=== PATIENT | male | born 1930 | race Caucasian/White ===

== ENCOUNTER 2016-04-20 12:10 | Inpatient (IN) | payer OTHER, BC ==
--- NOTE | 2016-04-20 12:37 | PDOC ---
History of Present Illness - General Chief Complaint: Shortness of Breath Stated Complaint: PCP SENT, SOB Time Seen by Provider: 04/20/16 12:27 History Source: Patient Exam Limitations: No Limitations - History of Present Illness Initial Comments: CHIEF COMPLAINT: 85 y/o afebrile male with PMH A-fib, CHF, CAD, DM, GERD, HTN, PVD, sarcoidosis, venous insufficiency sent in by Dr. Klein for admission for SOB. HISTORY OF PRESENT ILLNESS: The patient states he has had a productive cough of clear sputum for the past 1 week. He now has orthopnea and is afraid to lie flat because he chokes. He also admits to lower extremity swelling. The patient denies fever, chills, n/v/d, CP, abd pain, back pain. The patient completed a Z-pack 2 days ago for treatment of clinical pneumonia with little relief. Vital signs on arrival are within normal limits. REVIEW OF SYSTEMS: GENERAL/CONSTITUTIONAL: No fever/chills. No weakness. No weight change. HEAD, EYES, EARS, NOSE AND THROAT: No change in vision. No ear pain or discharge. No sore throat. CARDIOVASCULAR: No chest pain. +SOB RESPIRATORY: +productive cough of white sputum. +orthopnea. No wheezing, or hemoptysis. GASTROINTESTINAL: No abd pain, nausea, vomiting, diarrhea. GENITOURINARY: No dysuria, frequency, or change in urination. MUSCULOSKELETAL: +lower extremity swelling. No neck or back pain. SKIN: No rash or easy bruising. NEUROLOGIC: No headache, vertigo, loss of consciousness, or loss of sensation. PHYSICAL EXAM: GENERAL: The patient is awake, alert, and fully oriented, in no acute distress. He is BIB via wheelchair, appears well, can speak in full sentences. HEAD: Normal with no signs of trauma. ENT: Pupils equal, round and reactive to light, extraocular movements intact, sclera anicteric, conjunctiva clear. Neck supple. LUNGS: Posttussive rhonchi at the bases with a wet, congested sounding cough. Normal excursion. No respiratory distress or use of accessory muscles. CV: RRR, S1/S2, no MRG. Cap refill < 2 sec. ABDOMEN: Soft, non-distended, non. 2+pitting edema b/l LEs with brawny changes 2/[address] each calf. NEUROLOGICAL: Normal speech, normal gait. CN II-XII grossly intact. PSYCH: Normal mood, normal affect. SKIN: Warm, dry, normal turgor, no rashes or lesions noted. Past History - Past Medical History Allergies/Adverse Reactions: Allergies Allergy/AdvReac Type Severity Reaction Status Date / Time No Known Allergies Allergy Verified 04/20/16 12:13 Home Medications: Ambulatory Orders Carvedilol 6.25 mg PO BID 04/20/16 Cholecalciferol (Vitamin D3) [Vitamin D3 -] 400 unit PO DAILY 04/20/16 Digoxin [Lanoxin -] 0.125 mg PO DAILY 04/20/16 FA/Mv,Ca,Iron,Min/Lycopene/Lut [Centravites Tablet] 1 each PO DAILY 04/20/16 Furosemide [Lasix] 40 mg PO DAILY 04/20/16 Tamsulosin HCl [Flomax] 0.4 mg PO DAILY 04/20/16 Telmisartan [Micardis] 40 mg PO DAILY 04/20/16 Cardiac Disorders: Yes (PACEMAKER, A-FIB,CAD) Diabetes: Yes GI Disorders: Yes (GERD) HTN: Yes Other medical history: PVD - Surgical History Cardiac Surgery: Yes (PACEMAKER) Cholecystectomy: Yes - Psycho/Social/Smoking Cessation Hx Suicidal Ideation: No Smoking History: Never smoked *Physical Exam - Vital Signs Last Vital Signs Temp Pulse Resp BP Pulse Ox 68 19 116/71 98 04/20/16 12:14 04/20/16 12:14 04/20/16 12:14 04/20/16 12:14 Heart Score/ECG Review - ECG Intrepretation Comment:: Twelve-lead EKG was performed and reviewed by Dr. Ring. Ventricular-paced rhythm Impression: Abnormal EKG ED Treatment Course - LABORATORY CBC & Chemistry Diagram: 04/20/16 13:15 04/20/16 13:15 Medical Decision Making - Medical Decision Making A/P: 85 y/o afebrile male sent in by Dr. Klein for PNA vs CHF exacerbation. I suspect CHF exacerbation. Plan is as follows; 1. EKG 2. Labs 3. Cultures 4. UA/culture 5. Chest CT EKG -paced rhythm BNP - 5800; ordered lasix No leukocytosis or bandemia. Still awaiting CT. Admitted the patient to Dr. Mcdonnell with consults from Dr. Pritchett and Dr. Hay. *DC/Admit/Observation/Transfer Diagnosis at time of Disposition: CHF exacerbation Qualifiers: Congestive heart failure type: unspecified congestive heart failure type Qualified Code(s): I50.9 - Heart failure, unspecified - Discharge Dispostion Condition at time of disposition: Stable Admit: Yes - Referrals Referrals: Russell Mcdonnell MD [Primary Care Provider] -
[2016-04-20 13:31] LABS: BASOPHIL 0.6 % (0-2.0); EOSINOPHIL 4.4 % (0-4.5); MCH 21.8 pg (25.7-33.7); MCHC 32.5 g/dl (32.0-35.9); MEAN CELL VOLUME 67.1 fl (80-96); MEAN PLT VOLUME 9.1 fl (7.5-11.1); NEUTROPHILS 69.9 % (42.8-82.8); PLATELET COUNT 181 K/MM3 (134-434); RDW 18.7 % (11.9-15.9); WHITE BLOOD COUNT 5.4 K/mm3 (4.0-10.0)
[2016-04-20 13:36] LABS: URINE APPEARANCE CLEAR; URINE BILIRUBIN NEGATIVE (NEGATIVE); URINE BLOOD NEGATIVE (NEGATIVE); URINE COLOR YELLOW; URINE GLUCOSE (UA) NEGATIVE (NEGATIVE); URINE KETONE NEGATIVE (NEGATIVE); URINE LEUK ESTERASE NEGATIVE (NEGATIVE); URINE NITRITE NEGATIVE (NEGATIVE); URINE PROTEIN NEGATIVE (NEGATIVE); URINE UROBILINOGEN 2.0 E.U/dl E.U./dl (0.2-1.0)
--- NOTE | 2016-04-20 13:43 | PDOC ---
*Physical Exam - Vital Signs Last Vital Signs Temp Pulse Resp BP Pulse Ox 68 19 116/71 98 04/20/16 12:14 04/20/16 12:14 04/20/16 12:14 04/20/16 13:20 ED Treatment Course - LABORATORY CBC & Chemistry Diagram: 04/20/16 13:15 04/20/16 13:15 - ADDITIONAL ORDERS Additional order review: 04/20/16 13:15 RBC 4.92 MCV 67.1 L MCHC 32.5 RDW 18.7 H MPV 9.1 Neutrophils % 69.9 Lymphocytes % 16.3 Monocytes % 8.8 Eosinophils % 4.4 Basophils % 0.6 Medical Decision Making - Medical Decision Making 04/20/16 13:42 Patient seen and evaluated with the nurse practitioner. I agree with the overall evaluation, assessment, and management with the following summary of visit: 85-year-old male with worsening dyspnea sent from Dr. Mcdonnell's office for workup and likely admission, possible pneumonia versus CHF. Agree with management as outlined. *DC/Admit/Observation/Transfer Diagnosis at time of Disposition: CHF exacerbation - Discharge Dispostion Condition at time of disposition: Stable
[2016-04-20 13:59] LABS: INR 1.23 (0.82-1.09); PROTHROMBIN TIME (PATIENT) 13.6 SEC (9.98-11.88)
[2016-04-20 14:01] LABS: ACTIVATED PTT 37.1 SECONDS (26.9-34.4)
[2016-04-20 14:26] LABS: HYPOCHROMIA 3+
[2016-04-20 14:27] LABS: FRAGMENTED CELL 1+; TARGET CELLS 4+
[2016-04-20 15:48] LABS: ALBUMIN 3.8 g/dl (3.4-5.0); ANION GAP 10 (8-16); BILIRUBIN,TOTAL 1.2 mg/dL (0.2-1.0); CALCIUM 8.7 mg/dL (8.5-10.1); CO2 27 mmol/L (21-32); GLUCOSE,RANDOM 90 mg/dL (74-106); SGOT/AST 36 U/L (15-37); SGPT/ALT 30 U/L (12-78); TOT PROT 7.4 g/dl (6.4-8.2)
[2016-04-20 15:51] LABS: ALK PHOS 227 U/L (45-117); TROPONIN I < 0.02 ng/ml (0.00-0.05)
[2016-04-20] MEDS ORDERED: FUROSEMIDE 40 MG/4 ML INJECTABLE VIAL IVPUSH ONE (16:00)
[2016-04-20] MEDS ORDERED: FUROSEMIDE 40 MG/4 ML INJECTABLE VIAL ONE (16:21)
[2016-04-20 17:59] VITALS: BMI 25.8
--- NOTE | 2016-04-20 18:51 | HP ---
Admitting History and Physical - Admission Chief Complaint: sob/coug/fever History of Present Illness: 85 y/o male with h/o A-fib, CHF, CAD, DM, GERD, HTN, PVD, sarcoidosis, venous insufficiency sent in from my office for admission for SOB. The patient states he has had a productive cough of clear sputum for the past 1 week. He now has orthopnea and is afraid to lie flat because he chokes. He also admits to lower extremity swelling. The patient denies fever, chills, n/v/ d, CP, abd pain, back pain. The patient completed a Z-pack 2 days ago for treatment of clinical pneumonia with little relief. 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 No: Ascites Hepatobiliary: No: Cirrhosis Renal/: No: Renal Failure Heme/Onc: Yes: Anemia Infectious Disease: No: AIDS - Smoking History Smoking history: Never smoked - Social History Usual Living Arrangement: Yes: With Significant Other ADL: Independent History of Recent Travel: No Home Medications - Allergies Allergies/Adverse Reactions: Allergies Allergy/AdvReac Type Severity Reaction Status Date / Time No Known Allergies Allergy Verified 04/20/16 12:13 - Home Medications Home Medications: Ambulatory Orders Carvedilol 6.25 mg PO BID 04/20/16 Cholecalciferol (Vitamin D3) [Vitamin D3 -] 400 unit PO DAILY 04/20/16 Digoxin [Lanoxin -] 0.125 mg PO DAILY 04/20/16 FA/Mv,Ca,Iron,Min/Lycopene/Lut [Centravites Tablet] 1 each PO DAILY 04/20/16 Furosemide [Lasix] 40 mg PO DAILY 04/20/16 Tamsulosin HCl [Flomax] 0.4 mg PO DAILY 04/20/16 Telmisartan [Micardis] 40 mg PO DAILY 04/20/16 Family Disease History - Family Disease History Family History: Unremarkable Review of Systems - Review of Systems Cardiovascular: denies: Chest Pain Respiratory: reports: Cough, SOB on Exertion. denies: Hemoptysis Gastrointestinal: denies: Abdominal Pain Genitourinary: reports: No Symptoms Physical Examination Vital Signs: Vital Signs Temperature Pulse Rate 66 04/20/16 17:30 Respiratory Rate 18 04/20/16 17:30 Blood Pressure 129/74 04/20/16 17:30 O2 Sat by Pulse Oximetry (%) 97 04/20/16 17:30 Constitutional: Yes: Anxious Eyes: Yes: EOM Intact HENT: Yes: Normocephalic Neck: Yes: Trachea Midline Cardiovascular: Yes: Regular Rate and Rhythm, S1, S2 Respiratory: Yes: Diminished, Rhonchi Gastrointestinal: Yes: Normal Bowel Sounds, Abdomen, Obese Renal/: Yes: WNL Breast(s): Yes: WNL Musculoskeletal: Yes: Back Pain Edema: Yes Edema: LLE: 2+, RLE: 3+ Neurological: Yes: Alert Psychiatric: Yes: Alert Labs: reviewed Imaging - Results Cat Scan: Image Reviewed Problem List - Problems (1) CHF exacerbation Code(s): I50.9 - HEART FAILURE, UNSPECIFIED Qualifiers: Congestive heart failure type: unspecified congestive heart failure type Qualified Code(s): I50.9 - Heart failure, unspecified (2) Pacemaker Code(s): Z95.0 - PRESENCE OF CARDIAC PACEMAKER (3) ASHD (arteriosclerotic heart disease) Code(s): I25.10 - ATHSCL HEART DISEASE OF [place] CORONARY ARTERY W/O ANG PCTRS (4) Sarcoid Code(s): D86.9 - SARCOIDOSIS, UNSPECIFIED (5) Pneumonia Code(s): J18.9 - PNEUMONIA, UNSPECIFIED ORGANISM Assessment/Plan ACUTE LEFT POSTERIOR BASE PNEUMONIA COMMUNITY ACQUIRED LIKELY EXACERBATION CHF DUE TO ABOVE ASHD/HTN/SARCOIDOSIS/ATRIAL FIBRILLATION/PPM/GERD/DM/PVD O2/BRONCHODILATION/ANTIBIOTICS/PANCULTURE/NASAL SWAB FOR INFLUENZA CARDIO EVAL/ECHO Fouzia MARSHALL MD
[2016-04-20] MEDS: CARVEDILOL 6.25 MG TABLET (FP) PO SCH (22:15)
--- NOTE | 2016-04-21 09:22 | PN ---
Progress Note (short form) - Note Progress Note: ID consult dictated imp/reccd LLL pneumonia s/p zpack f/u cultures rocephin urinary antigens mild CHF history of PPM Problem List - Problems (1) Pneumonia Code(s): J18.9 - PNEUMONIA, UNSPECIFIED ORGANISM (2) CHF exacerbation Code(s): I50.9 - HEART FAILURE, UNSPECIFIED Qualifiers: Congestive heart failure type: unspecified congestive heart failure type Qualified Code(s): I50.9 - Heart failure, unspecified
[2016-04-21] MEDS ORDERED: AZITHROMYCIN IVPB 250 ML IVPB SCH (10:00)
--- NOTE | 2016-04-21 10:38 | CONS ---
DATE OF CONSULTATION: DATE OF DICTATION: 04/21/2016 REQUESTING PHYSICIAN: Russell Mcdonnell MD HISTORY OF PRESENT ILLNESS: This is an 85-year-old man. He lives at home. He has a history of atrial fibrillation and congestive heart failure in the past. He reports over the last weekend that he developed a cough and a postnasal drip. He called his primary doctor on Wednesday. He was prescribed a Z-Kehinde which he took all week, but he continued to have nonproductive cough, spasms of coughing, and shortness of breath. Given the lack of improvement, he completed the Z-Kehinde on Wednesday. On the weekend, he was absolutely no better. He came to the hospital. He notes that he has had some intermittent chills especially at night. He has spasms of cough. The cough is nonproductive. There is no hemoptysis. He has had no documented fever. There is no history of any travel. He has no sick contacts. There is no nausea, vomiting, diarrhea, or dysuria. He had a no fever in the emergency room. He had a CT scan done that revealed a left lower lobe pneumonia. PAST MEDICAL HISTORY: Notable for atrial fibrillation, congestive heart failure, coronary artery disease, diabetes, GERD. He has a history of anemia, a history of COPD and sarcoid. SURGICAL HISTORY: Notable for cholecystectomy, and he has a permanent pacemaker which was placed in 2001. He has bilateral venous stasis of his legs and chronic discoloration, as well. ALLERGIES: He has no known drug allergies. MEDICATIONS: As an outpatient include Coreg, vitamin D, Lanoxin, multivitamins, Lasix, Flomax, and Micardis. FAMILY HISTORY: Noncontributory. SOCIAL HISTORY: He lives with his significant other. He used to be a [employer] employee and lived in [place], but he has been living in the [facility] now for the last 20 years. There is no history of any cigarette or substance use. REVIEW OF SYSTEMS: As per HPI. He has no nausea, vomiting, diarrhea. He has no chest pain or abdominal pain. SUMMARY: This is an elderly man admitted with cough that failed to improve with Z-Kehinde, found on CT scan to have a lower lobe infiltrate. I suspect at this time that we need to treat him for community-acquired pneumonia. I would treat him with ceftriaxone, would follow up cultures which have been sent. Influenza screen is negative. Would obtain urinary antigens. He appears to have mild congestive heart failure and Cardiology followup has been ordered, as well. Further recommendations to follow based on his clinical course. NAYLA YOUSIF M.D. BETHANY/[id number]
[2016-04-21] MEDS: DIGOXIN 0.125 MG TABLET (FP) PO SCH (10:48)
[2016-04-21] MEDS: CARVEDILOL 6.25 MG TABLET (FP) PO SCH ×2 (10:48→21:10)
[2016-04-21] MEDS: CEFTRIAXONE 50 ML IVPB SCH (10:48)
[2016-04-21] MEDS: FUROSEMIDE 40 MG TABLET (FP) PO SCH (10:50)
[2016-04-21] MEDS: LOSARTAN POTASSIUM 50 MG TABLET (FP) PO SCH (10:50)
[2016-04-21] MEDS: TAMSULOSIN HCL 0.4 MG CAP.ER.24H (FP) PO SCH (10:50)
--- NOTE | 2016-04-21 10:50 | CON.CARD ---
Consult Consult Specialty:: cardiology Reason for Consultation:: shortness of breath - History of Present Illness History of Present Illness: 85 y/o afebrile white male with PMH A-fib, systolic CHF (mild-moerately decreased LVEF on 2014 ECHO), CAD, DM, GERD, HTN, PVD, sarcoidosis, venous insufficiency sent in by Dr. Klein for admission for SOB. HISTORY OF PRESENT ILLNESS: The patient states he has had a productive cough of clear sputum for the past 1 week. He now has orthopnea and is afraid to lie flat because he chokes. He also admits to lower extremity swelling. The patient denies fever, chills, n/v/d, CP, abd pain, back pain. The patient completed a Z-pack 2 days ago for treatment of clinical pneumonia with little relief. Vital signs on arrival are within normal limits. 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 No: Ascites Hepatobiliary: No: Cirrhosis Renal/: No: Renal Failure Infectious Disease: No: AIDS Psych: Yes: Anxiety - Past Surgical History Past Surgical History: Yes: Permanent Pacemaker - Smoking History Smoking history: Never smoked - Social History Usual Living Arrangement: With Spouse ADL: Independent History of Recent Travel: No Home Medications - Allergies Allergies/Adverse Reactions: Allergies Allergy/AdvReac Type Severity Reaction Status Date / Time No Known Allergies Allergy Verified 04/20/16 12:13 - Home Medications Home Medications: Ambulatory Orders Carvedilol 6.25 mg PO BID 04/20/16 Cholecalciferol (Vitamin D3) [Vitamin D3 -] 400 unit PO DAILY 04/20/16 Digoxin [Lanoxin -] 0.125 mg PO DAILY 04/20/16 FA/Mv,Ca,Iron,Min/Lycopene/Lut [Centravites Tablet] 1 each PO DAILY 04/20/16 Furosemide [Lasix] 40 mg PO DAILY 04/20/16 Tamsulosin HCl [Flomax] 0.4 mg PO DAILY 04/20/16 Telmisartan [Micardis] 40 mg PO DAILY 04/20/16 Family Disease History - Family Disease History Family History: Denies Review of Systems - Review of Systems Constitutional: reports: Weakness Eyes: reports: No Symptoms HENT: reports: No Symptoms Neck: reports: No Symptoms Cardiovascular: reports: Shortness of Breath Respiratory: reports: SOB on Exertion Musculoskeletal: reports: Decreased ROM, Joint Pain, Muscle Weakness Neurological: reports: Weakness Psychiatric: reports: Anxiety - Risk Factors Known Risk Factors: Yes: Age, Gender, Hypertension, Physical Inactivity Vital Signs: Vital Signs Temperature 97.3 F L 04/21/16 06:00 Pulse Rate 98 H 04/21/16 10:48 Respiratory Rate 19 04/21/16 06:00 Blood Pressure 130/77 04/21/16 06:00 O2 Sat by Pulse Oximetry (%) 96 04/21/16 06:00 Constitutional: Yes: Anxious Eyes: Yes: WNL HENT: Yes: WNL Neck: Yes: WNL Respiratory: Yes: Diminished Gastrointestinal: Yes: Soft, Abdomen, Obese Renal/: No: Anuria JVD: No Carotid Bruit: No PMI: Non-Displaced Heart Sounds: Yes: S1, Split S2 Murmur: Yes: Systolic Murmur, Grade 2 Musculoskeletal: Yes: Muscle Weakness Extremities: Yes: Cool Edema: Yes Edema: LLE: 1+, RLE: 1+ Peripheral Pulses WNL: No Peripheral Pulses: 1+ Left Doralis Pedis, 1+ Right Dorsalis Pedis Neurological: Yes: Alert, Oriented, Weakness Psychiatric: Yes: Alert, Oriented - Other Data Labs, Other Data: INR, PTT INR 1.23 (0.82-1.09) H 04/20/16 13:15 Prior Cardiac Procedures: Other (PPM) Ejection Fraction %: LVEF < 40 % Imaging - Results Cat Scan: Image Reviewed (LLL pneumonia; pleural effusion; ascities) Problem List - Problems (1) ASHD (arteriosclerotic heart disease) Code(s): I25.10 - ATHSCL HEART DISEASE OF [place] CORONARY ARTERY W/O ANG PCTRS (2) Pacemaker Code(s): Z95.0 - PRESENCE OF CARDIAC PACEMAKER (3) Pneumonia Assessment/Plan: On antibiotics; f/u c/s. Code(s): J18.9 - PNEUMONIA, UNSPECIFIED ORGANISM (4) Sarcoid Code(s): D86.9 - SARCOIDOSIS, UNSPECIFIED (5) Acute on chronic systolic (congestive) heart failure Assessment/Plan: Moderately reduced LVEF (2015 ECHO). Continue carvedilol and losartan; add spironolactone 25 mg daily; furosemide prn. F/u BUN/Cr, daily weight, electrolytes, Is and Os (had trouble urinating after Lasix: BPH). Digoxin level (keep 0.5-1.0; will reassess necessity of this medication). F/u TSH. Code(s): I50.23 - ACUTE ON CHRONIC SYSTOLIC (CONGESTIVE) HEART FAILURE
[2016-04-21] MEDS: ALBUTEROL SO4 2.5/IPRATROPIUM 0.5 INH SOL 3 ML VIAL.NEB. NEB SCH ×3 (11:03→23:15)
[2016-04-21] MEDS: SPIRONOLACTONE 25 MG TABLET (FP) PO SCH (11:18)
--- NOTE | 2016-04-21 14:58 | PN ---
Progress Note (short form) - Note Progress Note: PULMONARY/MED Feeling slightly better. +cough productive of yellow sputum. No fevers or chills. Last Vital Signs Temp Pulse Resp BP Pulse Ox 97.7 F 65 18 113/64 96 04/21/16 14:35 04/21/16 14:35 04/21/16 14:35 04/21/16 14:35 04/21/16 10:00 Gen: NAD in chair Heart: RRR Lung: scattered rhonchi Abd: soft, nontender Ext: + edema, chronic changes CBC, BMP 04/20/16 13:15 04/20/16 13:15 Active Medications Albuterol/Ipratropium (Duoneb -) 1 amp NEB QIDR [facility] Last Admin: 04/21/16 11:03 Dose: 1 amp Carvedilol (Coreg -) 6.25 mg PO BID [facility] Last Admin: 04/21/16 10:48 Dose: 6.25 mg Digoxin (Lanoxin -) 0.125 mg PO DAILY [facility] Last Admin: 04/21/16 10:48 Dose: 0.125 mg Furosemide (Lasix -) 40 mg PO DAILY [facility] Last Admin: 04/21/16 10:50 Dose: 40 mg Ceftriaxone Sodium (Rocephin 1gm Ivpb (Pre-Docked)) 50 mls @ 100 mls/hr IVPB DAILY [facility] Last Admin: 04/21/16 10:48 Dose: 100 mls/hr Losartan Potassium (Cozaar -) 50 mg PO DAILY [facility] Last Admin: 04/21/16 10:50 Dose: 50 mg Spironolactone (Aldactone -) 25 mg PO DAILY [facility] Last Admin: 04/21/16 11:18 Dose: 25 mg Tamsulosin HCl (Flomax -) 0.4 mg PO DAILY@0830 [facility] Last Admin: 04/21/16 10:50 Dose: 0.4 mg A/P Pneumonia Sarcoidosis CAD Acute on Chronic LV Systolic Heart Failure Atrial Fibrillation - continue antibiotics - f/u cultures - inhaled bronchodilators - lasix, aldactone - rate controlled - DVT prophylaxis
[2016-04-21] MEDS: ENOXAPARIN NA (PORCINE) 40 MG/0.4 ML DISP.SYRIN SQ SCH (15:46)
--- NOTE | 2016-04-21 23:25 | EKG ---
Test Reason : Blood Pressure : / mmHG Vent. Rate : 066 BPM Atrial Rate : 065 BPM P-R Int : 000 ms QRS Dur : 176 ms QT Int : 486 ms P-R-T Axes : 000 -61 098 degrees QTc Int : 509 ms Ventricular-paced rhythm ABNORMAL ECG WHEN COMPARED WITH ECG OF 11-AUG-2004 09:49, VENT. RATE HAS DECREASED BY 10 BPM Confirmed by MARISELA RODRIGUEZ MD ([id number]) on 04/21/2016 11:25:32 PM Referred By: Confirmed By:MARISELA RODRIGUEZ MD
[2016-04-22] MEDS: ALBUTEROL SO4 2.5/IPRATROPIUM 0.5 INH SOL 3 ML VIAL.NEB. NEB SCH ×3 (06:22→18:50)
[2016-04-22 07:29] LABS: BASOPHIL 0.5 % (0-2.0); EOSINOPHIL 4.8 % (0-4.5); MCH 21.8 pg (25.7-33.7); MCHC 32.4 g/dl (32.0-35.9); MEAN CELL VOLUME 67.3 fl (80-96); NEUTROPHILS 58.9 % (42.8-82.8); PLATELET COUNT 187 K/MM3 (134-434); RDW 18.7 % (11.9-15.9); WHITE BLOOD COUNT 4.7 K/mm3 (4.0-10.0)
[2016-04-22 07:53] LABS: ALBUMIN 3.4 g/dl (3.4-5.0); CALCIUM 8.6 mg/dL (8.5-10.1); MAGNESIUM 2.1 mg/dL (1.8-2.4)
[2016-04-22 08:07] LABS: BILIRUBIN,TOTAL 1.1 mg/dL (0.2-1.0); CREATININE 1.2 mg/dL (0.7-1.3); DIGOXIN LEVEL 0.7746 ng/ml (0.8-2.0); PHOSPHOROUS 3.3 mg/dL (2.5-4.9); TOT PROT 6.6 g/dl (6.4-8.2)
[2016-04-22 08:21] LABS: THYROID STIMULATING HORMONE 5.07 uIU/ml (0.358-3.74)
[2016-04-22] MEDS: TAMSULOSIN HCL 0.4 MG CAP.ER.24H (FP) PO SCH (08:39)
[2016-04-22] MEDS: SPIRONOLACTONE 25 MG TABLET (FP) PO SCH (09:43)
[2016-04-22] MEDS: DIGOXIN 0.125 MG TABLET (FP) PO SCH (09:44)
[2016-04-22] MEDS: CARVEDILOL 6.25 MG TABLET (FP) PO SCH ×2 (09:44→22:13)
[2016-04-22] MEDS: FUROSEMIDE 40 MG TABLET (FP) PO SCH (09:44)
[2016-04-22] MEDS: LOSARTAN POTASSIUM 50 MG TABLET (FP) PO SCH (09:44)
[2016-04-22] MEDS: ENOXAPARIN NA (PORCINE) 40 MG/0.4 ML DISP.SYRIN SQ SCH (09:50)
[2016-04-22] MEDS: CEFTRIAXONE 50 ML IVPB SCH (09:54)
--- NOTE | 2016-04-22 11:07 | PN ---
Progress Note, Physician History of Present Illness: 85 y/o afebrile white male with PMH A-fib, systolic CHF (mild-moerately decreased LVEF on 2015 ECHO), CAD, DM, GERD, HTN, PVD, sarcoidosis, venous insufficiency sent in by Dr. Klein [place] [facility] [place] HISTORY OF PRESENT ILLNESS: The patient states he has had a productive cough of clear sputum for the past 1 week. He now has orthopnea and is afraid to lie flat because he chokes. He also admits to lower extremity swelling. The patient denies fever, chills, n/v/d, CP, abd pain, back pain. The patient completed a Z-pack 2 days ago for treatment of clinical pneumonia with little relief. - Current Medication List Current Medications: Active Medications Albuterol/Ipratropium (Duoneb -) 1 amp NEB QIDR [facility] Last Admin: 04/22/16 06:22 Dose: 1 amp Carvedilol (Coreg -) 6.25 mg PO BID [facility] Last Admin: 04/22/16 09:44 Dose: 6.25 mg Digoxin (Lanoxin -) 0.125 mg PO DAILY [facility] Last Admin: 04/22/16 09:44 Dose: 0.125 mg Enoxaparin Sodium (Lovenox -) 40 mg SQ DAILY [facility] Last Admin: 04/22/16 09:50 Dose: 40 mg Furosemide (Lasix -) 40 mg PO DAILY [facility] Last Admin: 04/22/16 09:44 Dose: 40 mg Ceftriaxone Sodium (Rocephin 1gm Ivpb (Pre-Docked)) 50 mls @ 100 mls/hr IVPB DAILY [facility] Last Admin: 04/22/16 09:54 Dose: 100 mls/hr Losartan Potassium (Cozaar -) 50 mg PO DAILY [facility] Last Admin: 04/22/16 09:44 Dose: 50 mg Spironolactone (Aldactone -) 25 mg PO DAILY [facility] Last Admin: 04/22/16 09:43 Dose: 25 mg Tamsulosin HCl (Flomax -) 0.4 mg PO DAILY@0830 [facility] Last Admin: 04/22/16 08:39 Dose: 0.4 mg - Objective Vital Signs: Vital Signs Temperature 97.5 F L 04/22/16 06:00 Pulse Rate 72 04/22/16 09:44 Respiratory Rate 18 04/22/16 06:00 Blood Pressure 106/65 04/22/16 06:00 O2 Sat by Pulse Oximetry (%) 95 04/22/16 05:54 Eyes: Yes: WNL, Conjunctiva Clear, EOM Intact HENT: Yes: WNL, Atraumatic, Normocephalic Neck: Yes: WNL, Supple, Trachea Midline Cardiovascular: Yes: Pulse Irregular Respiratory: Yes: WNL, Regular, CTA Bilaterally Gastrointestinal: Yes: WNL, Normal Bowel Sounds Genitourinary: Yes: WNL Musculoskeletal: Yes: WNL Extremities: Yes: WNL Edema: Yes Integumentary: Yes: WNL Neurological: Yes: WNL, Alert, Oriented ...Motor Strength: WNL Psychiatric: Yes: WNL Labs: CBC, BMP 04/22/16 05:35 04/22/16 05:35 INR, PTT INR 1.23 (0.82-1.09) H 04/20/16 13:15 Assessment/Plan - Problems (1) ASHD (arteriosclerotic heart disease) Code(s): I25.10 - ATHSCL HEART DISEASE OF [place] CORONARY ARTERY W/O ANG PCTRS (2) Pacemaker Code(s): Z95.0 - PRESENCE OF CARDIAC PACEMAKER (3) Pneumonia Assessment/Plan: On antibiotics; f/u c/s. Code(s): J18.9 - PNEUMONIA, UNSPECIFIED ORGANISM (4) Sarcoid Code(s): D86.9 - SARCOIDOSIS, UNSPECIFIED (5) Acute on chronic systolic (congestive) heart failure Assessment/Plan: Moderately reduced LVEF (2014 ECHO). Continue carvedilol and losartan; add spironolactone 25 mg daily; furosemide prn. F/u BUN/Cr, daily weight, electrolytes, Is and Os (had trouble urinating after Lasix: BPH). Digoxin level (keep 0.5-1.0; will reassess necessity of this medication). F/u TSH. Code(s): I50.23 - ACUTE ON CHRONIC SYSTOLIC (CONGESTIVE) HEART FAILURE s/p PPM - will arrange interrogation.
--- NOTE | 2016-04-22 11:21 | PN ---
Progress Note, Physician History of Present Illness: Pulmonary alert,feeling better,less dyspneic,+cough,-cp - Current Medication List Current Medications: Active Medications Albuterol/Ipratropium (Duoneb -) 1 amp NEB QIDR [facility] Last Admin: 04/22/16 06:22 Dose: 1 amp Carvedilol (Coreg -) 6.25 mg PO BID [facility] Last Admin: 04/22/16 09:44 Dose: 6.25 mg Digoxin (Lanoxin -) 0.125 mg PO DAILY [facility] Last Admin: 04/22/16 09:44 Dose: 0.125 mg Enoxaparin Sodium (Lovenox -) 40 mg SQ DAILY [facility] Last Admin: 04/22/16 09:50 Dose: 40 mg Furosemide (Lasix -) 40 mg PO DAILY [facility] Last Admin: 04/22/16 09:44 Dose: 40 mg Ceftriaxone Sodium (Rocephin 1gm Ivpb (Pre-Docked)) 50 mls @ 100 mls/hr IVPB DAILY [facility] Last Admin: 04/22/16 09:54 Dose: 100 mls/hr Losartan Potassium (Cozaar -) 50 mg PO DAILY [facility] Last Admin: 04/22/16 09:44 Dose: 50 mg Spironolactone (Aldactone -) 25 mg PO DAILY [facility] Last Admin: 04/22/16 09:43 Dose: 25 mg Tamsulosin HCl (Flomax -) 0.4 mg PO DAILY@0830 [facility] Last Admin: 04/22/16 08:39 Dose: 0.4 mg - Objective Vital Signs: Vital Signs Temperature 97.5 F L 04/22/16 06:00 Pulse Rate 72 04/22/16 09:44 Respiratory Rate 18 04/22/16 06:00 Blood Pressure 106/65 04/22/16 06:00 O2 Sat by Pulse Oximetry (%) 94 L 04/22/16 10:54 Constitutional: Yes: Well Nourished, Calm Eyes: Yes: WNL HENT: Yes: WNL Neck: Yes: WNL Cardiovascular: Yes: Pulse Irregular, S1, S2 Respiratory: Yes: Rhonchi (scattered b il rhonchi) Gastrointestinal: Yes: Normal Bowel Sounds, Soft Extremities: Yes: WNL Edema: Yes Labs: CBC, BMP 04/22/16 05:35 04/22/16 05:35 INR, PTT INR 1.23 (0.82-1.09) H 04/20/16 13:15 Assessment/Plan A/P Pneumonia Sarcoidosis CAD Acute on Chronic LV Systolic Heart Failure Atrial Fibrillation - continue antibiotics - inhaled bronchodilators - lasix, aldactone - rate controlled - DVT prophylaxis DR ORTIZ
--- NOTE | 2016-04-22 13:41 | EKG ---
Test Reason : Blood Pressure : / mmHG Vent. Rate : 068 BPM Atrial Rate : 059 BPM P-R Int : 000 ms QRS Dur : 214 ms QT Int : 512 ms P-R-T Axes : 000 -70 108 degrees QTc Int : 544 ms Ventricular-paced rhythm WITH OCCASIONAL PREMATURE VENTRICULAR COMPLEXES ABNORMAL ECG WHEN COMPARED WITH ECG OF 20-APR-2016 13:19, PREMATURE VENTRICULAR COMPLEXES ARE NOW PRESENT VENT. RATE HAS INCREASED BY 2 BPM Confirmed by JOSE PERRY MD ([id number]) on 04/22/2016 1:40:49 PM Referred By: ALEKSANDR YAO DR Confirmed By:JOSE PERRY MD
--- NOTE | 2016-04-22 17:00 | PN ---
Progress Note (short form) - Note Progress Note: no complaints still some cough but less +SOB Vital Signs Period Temp Pulse Resp BP Sys/Suárez Pulse Ox Last 24 Hr 97.5 F-97.6 F 58-78 14-74 101-141/44-66 94-96 cor-rrr lungs decreased bs at bases abd soft,nt ext no edema venous stasis changes bilat CBC, BMP 04/22/16 05:35 04/22/16 05:35 Microbiology 04/20/16 13:30 Blood - Peripheral Venous Blood Culture - Preliminary NO GROWTH OBTAINED AFTER 48 HOURS, INCUBATION TO CONTINUE FOR 3 DAYS. 04/20/16 13:30 Blood - Peripheral Venous Blood Culture - Preliminary NO GROWTH OBTAINED AFTER 48 HOURS, INCUBATION TO CONTINUE FOR 3 DAYS. 04/20/16 12:46 Nasopharyngeal Swab Respiratory Virus Panel - Preliminary 04/20/16 13:30 Urine - Urine Clean Catch Urine Culture - Final NO GROWTH OBTAINED 04/20/16 12:46 Nasopharyngeal Swab Influenza Types A,B Antigen (DWIGHT) - Final 04/20/16 12:46 Nasopharyngeal Swab - Final a/p RLL pneumonia- s/p zithromax, continue rocephin reorder urinary antigens CAD/CHF/PPM- per cardiology Problem List - Problems (1) Pneumonia Code(s): J18.9 - PNEUMONIA, UNSPECIFIED ORGANISM (2) CHF exacerbation Code(s): I50.9 - HEART FAILURE, UNSPECIFIED Qualifiers: Congestive heart failure type: unspecified congestive heart failure type Qualified Code(s): I50.9 - Heart failure, unspecified
[2016-04-22] MEDS: FLUTICASONE PROP 0.05% 16 GM NASAL SPRAY NS SCH (23:01)
[2016-04-22] MEDS: diphenhydrAMINE HCL 25 MG CAPSULE (FP) PO PRN (23:01)
[2016-04-23] MEDS: ALBUTEROL SO4 2.5/IPRATROPIUM 0.5 INH SOL 3 ML VIAL.NEB. NEB SCH ×5 (00:18→23:25)
[2016-04-23] MEDS ORDERED: PT OWN MED DRAWER 7, Y5N ONE (06:46)
[2016-04-23] MEDS: TAMSULOSIN HCL 0.4 MG CAP.ER.24H (FP) PO SCH (08:22)
--- NOTE | 2016-04-23 09:22 | PN ---
Progress Note, Physician Chief Complaint: ID Appears to be doing well no complaints Ceftriaxone day 3 therapy NAD no couph - Current Medication List Current Medications: Active Medications Albuterol/Ipratropium (Duoneb -) 1 amp NEB QIDR [facility] Last Admin: 04/23/16 06:15 Dose: 1 amp Carvedilol (Coreg -) 6.25 mg PO BID [facility] Last Admin: 04/22/16 22:13 Dose: 6.25 mg Digoxin (Lanoxin -) 0.125 mg PO DAILY [facility] Last Admin: 04/22/16 09:44 Dose: 0.125 mg Diphenhydramine HCl (Benadryl -) 25 mg PO Q6H PRN PRN Reason: PRN Last Admin: 04/22/16 23:01 Dose: 25 mg Enoxaparin Sodium (Lovenox -) 40 mg SQ DAILY [facility] Last Admin: 04/22/16 09:50 Dose: 40 mg Fluticasone Propionate (Flonase -) 1 spray NS BID [facility] Last Admin: 04/22/16 23:01 Dose: 1 spray Furosemide (Lasix -) 40 mg PO DAILY [facility] Last Admin: 04/22/16 09:44 Dose: 40 mg Ceftriaxone Sodium (Rocephin 1gm Ivpb (Pre-Docked)) 50 mls @ 100 mls/hr IVPB DAILY [facility] Last Admin: 04/22/16 09:54 Dose: 100 mls/hr Losartan Potassium (Cozaar -) 50 mg PO DAILY [facility] Last Admin: 04/22/16 09:44 Dose: 50 mg Spironolactone (Aldactone -) 25 mg PO DAILY [facility] Last Admin: 04/22/16 09:43 Dose: 25 mg Tamsulosin HCl (Flomax -) 0.4 mg PO DAILY@0830 [facility] Last Admin: 04/23/16 08:22 Dose: 0.4 mg - Objective Vital Signs: Vital Signs Temperature 97.9 F 04/23/16 05:13 Pulse Rate 74 04/23/16 05:13 Respiratory Rate 20 04/23/16 05:13 Blood Pressure 123/70 04/23/16 05:13 O2 Sat by Pulse Oximetry (%) 96 04/22/16 21:00 Constitutional: Yes: Well Nourished, No Distress Eyes: Yes: WNL, Conjunctiva Clear HENT: Yes: WNL, Atraumatic Neck: Yes: WNL, Supple Cardiovascular: Yes: Regular Rate and Rhythm, S1, S2 Respiratory: Yes: WNL, Regular, CTA Bilaterally. No: Rales, Rhonchi Gastrointestinal: Yes: WNL, Normal Bowel Sounds, Soft. No: Tenderness Labs: CBC, BMP 04/22/16 05:35 04/22/16 05:35 INR, PTT INR 1.23 (0.82-1.09) H 04/20/16 13:15 Assessment/Plan Laboratory Tests 04/22/16 04/22/16 05:35 05:35 WBC 4.7 Hgb 9.9 L Plt Count 187 BUN 26 H D AST 27 D ALT 25 Alkaline Phosphatase 177 H D Assessment Small LLL infiltrate stable Plan Switch to Cefodoxime or ceftin few more days
[2016-04-23] MEDS: LOSARTAN POTASSIUM 50 MG TABLET (FP) PO SCH (10:20)
[2016-04-23] MEDS: SPIRONOLACTONE 25 MG TABLET (FP) PO SCH (10:20)
[2016-04-23] MEDS: DIGOXIN 0.125 MG TABLET (FP) PO SCH (10:20)
[2016-04-23] MEDS: CARVEDILOL 6.25 MG TABLET (FP) PO SCH ×2 (10:20→22:55)
[2016-04-23] MEDS: FUROSEMIDE 40 MG TABLET (FP) PO SCH (10:21)
[2016-04-23] MEDS: FLUTICASONE PROP 0.05% 16 GM NASAL SPRAY NS SCH ×2 (10:21→22:53)
[2016-04-23] MEDS: ENOXAPARIN NA (PORCINE) 40 MG/0.4 ML DISP.SYRIN SQ SCH (10:21)
[2016-04-23] MEDS: CEFTRIAXONE 50 ML IVPB SCH (10:21)
[2016-04-23] MEDS: CEFPODOXIME PROXETIL 100 MG TABLET PO SCH ×2 (12:06→22:55)
--- NOTE | 2016-04-23 12:52 | PN ---
Progress Note (short form) - Note Progress Note: OOB to chair. NAD on RA. Some dry cough. Sleeping in a semi-recumbent position due to cough. No CP. Noted increased TSH -> due to concurrent illness. Intake & Output 04/20/16 04/21/16 04/22/16 04/23/16 23:59 23:59 23:59 23:59 Intake Total 250 1230 460 120 Output Total 1100 450 300 Balance 250 130 10 -180 Weight 175 lb 170 lb 2 oz Last Vital Signs Temp Pulse Resp BP Pulse Ox 97.6 F 72 16 129/70 96 04/23/16 10:13 04/23/16 10:20 04/23/16 10:13 04/23/16 10:13 04/22/16 21:00 Active Medications Albuterol/Ipratropium (Duoneb -) 1 amp NEB QIDR [facility] Last Admin: 04/23/16 11:20 Dose: Not Given Carvedilol (Coreg -) 6.25 mg PO BID [facility] Last Admin: 04/23/16 10:20 Dose: 6.25 mg Cefpodoxime Proxetil (Vantin (Nf) -) 200 mg PO BID [facility] Stop: 04/26/16 22:01 Last Admin: 04/23/16 12:06 Dose: 200 mg Digoxin (Lanoxin -) 0.125 mg PO DAILY [facility] Last Admin: 04/23/16 10:20 Dose: 0.125 mg Diphenhydramine HCl (Benadryl -) 25 mg PO Q6H PRN PRN Reason: PRN Last Admin: 04/22/16 23:01 Dose: 25 mg Enoxaparin Sodium (Lovenox -) 40 mg SQ DAILY [facility] Last Admin: 04/23/16 10:21 Dose: 40 mg Fluticasone Propionate (Flonase -) 1 spray NS BID [facility] Last Admin: 04/23/16 10:21 Dose: 1 spray Furosemide (Lasix -) 40 mg PO DAILY [facility] Last Admin: 04/23/16 10:21 Dose: 40 mg Ceftriaxone Sodium (Rocephin 1gm Ivpb (Pre-Docked)) 50 mls @ 100 mls/hr IVPB DAILY [facility] Last Admin: 04/23/16 10:21 Dose: 100 mls/hr Losartan Potassium (Cozaar -) 50 mg PO DAILY [facility] Last Admin: 04/23/16 10:20 Dose: 50 mg Spironolactone (Aldactone -) 25 mg PO DAILY [facility] Last Admin: 04/23/16 10:20 Dose: 25 mg Tamsulosin HCl (Flomax -) 0.4 mg PO DAILY@0830 [facility] Last Admin: 04/23/16 08:22 Dose: 0.4 mg Constitutional: Yes: NAD Eyes: Yes: WNL HENT: Yes: WNL Neck: Yes: WNL Cardiovascular: Yes: Pulse Irregular, S1, S2 Respiratory: Yes: Scattered bilateral Rhonchi Gastrointestinal: Yes: Normal Bowel Sounds, Soft Extremities: Yes: WNL Edema: Yes Labs: Assessment/Plan A/P Pneumonia Sarcoidosis CAD Acute on Chronic LV Systolic Heart Failure Atrial Fibrillation - ABX per ID - inhaled bronchodilators - lasix, aldactone - rate controlled - DVT prophylaxis - Check CXR - Will follow [facility] as an outpatient - For possible cardiac cath tomorrow Dr Taylor
--- NOTE | 2016-04-23 16:08 | PN ---
Progress Note, Physician Chief Complaint: Pt A&Ox3; OOB in chair. No chest pain: + frequent cough; denies PND History of Present Illness: 85 y/o afebrile white male with PMH A-fib, systolic CHF (mild-moerately decreased LVEF on 2014 ECHO; severely reduced LVEF on 04/22/2016 ECHO), CAD, DM , GERD, HTN, PVD, sarcoidosis, venous insufficiency sent in by Dr. Klein for admission for SOB. HISTORY OF PRESENT ILLNESS: The patient states he has had a productive cough of clear sputum for the past 1 week. He now has orthopnea and is afraid to lie flat because he chokes. He also admits to lower extremity swelling. The patient denies fever, chills, n/v/d, CP, abd pain, back pain. The patient completed a Z-pack 2 days ago for treatment of clinical pneumonia with little relief. Vital signs on arrival are within normal limits. - Current Medication List Current Medications: Active Medications Albuterol/Ipratropium (Duoneb -) 1 amp NEB QIDR [facility] Last Admin: 04/23/16 11:20 Dose: Not Given Carvedilol (Coreg -) 6.25 mg PO BID [facility] Last Admin: 04/23/16 10:20 Dose: 6.25 mg Cefpodoxime Proxetil (Vantin (Nf) -) 200 mg PO BID [facility] Stop: 04/26/16 22:01 Last Admin: 04/23/16 12:06 Dose: 200 mg Digoxin (Lanoxin -) 0.125 mg PO DAILY [facility] Last Admin: 04/23/16 10:20 Dose: 0.125 mg Diphenhydramine HCl (Benadryl -) 25 mg PO Q6H PRN PRN Reason: PRN Last Admin: 04/22/16 23:01 Dose: 25 mg Enoxaparin Sodium (Lovenox -) 40 mg SQ DAILY [facility] Last Admin: 04/23/16 10:21 Dose: 40 mg Fluticasone Propionate (Flonase -) 1 spray NS BID [facility] Last Admin: 04/23/16 10:21 Dose: 1 spray Furosemide (Lasix -) 40 mg PO DAILY [facility] Last Admin: 04/23/16 10:21 Dose: 40 mg Ceftriaxone Sodium (Rocephin 1gm Ivpb (Pre-Docked)) 50 mls @ 100 mls/hr IVPB DAILY [facility] Last Admin: 04/23/16 10:21 Dose: 100 mls/hr Losartan Potassium (Cozaar -) 50 mg PO DAILY [facility] Last Admin: 04/23/16 10:20 Dose: 50 mg Spironolactone (Aldactone -) 25 mg PO DAILY [facility] Last Admin: 04/23/16 10:20 Dose: 25 mg Tamsulosin HCl (Flomax -) 0.4 mg PO DAILY@0830 [facility] Last Admin: 04/23/16 08:22 Dose: 0.4 mg - Objective Vital Signs: Vital Signs Temperature 97.2 F L 04/23/16 14:05 Pulse Rate 64 04/23/16 14:05 Respiratory Rate 18 04/23/16 14:05 Blood Pressure 119/65 04/23/16 14:05 O2 Sat by Pulse Oximetry (%) 96 04/22/16 21:00 Constitutional: Yes: Calm Eyes: Yes: WNL HENT: Yes: WNL Neck: Yes: WNL Cardiovascular: Yes: Regular Rate and Rhythm Respiratory: Yes: Regular, Cough Gastrointestinal: Yes: Soft ...Rectal Exam: Yes: Deferred Genitourinary: No: Anuria Breast(s): Yes: WNL Musculoskeletal: Yes: Muscle Weakness Extremities: Yes: Cool Edema: No Peripheral Pulses WNL: No Peripheral Pulses: Left Doralis Pedis: 1+, Right Dorsalis Pedis: 1+ Integumentary: Yes: WNL Neurological: Yes: Alert, Oriented, Weakness Psychiatric: Yes: WNL Labs: CBC, BMP 04/22/16 05:35 04/22/16 05:35 INR, PTT INR 1.23 (0.82-1.09) H 04/20/16 13:15 - ....Imaging Chest X-ray: Image Reviewed (no acute pathology) Other: Image Reviewed (telemetry: NSR) Problem List - Problems (1) ASHD (arteriosclerotic heart disease) Code(s): I25.10 - ATHSCL HEART DISEASE OF [place] CORONARY ARTERY W/O ANG PCTRS (2) Pacemaker Assessment/Plan: f/u interrogation. Code(s): Z95.0 - PRESENCE OF CARDIAC PACEMAKER (3) Pneumonia Assessment/Plan: On antibiotics; no growth on blood c/s. CXR today: no acute pathology. Code(s): J18.9 - PNEUMONIA, UNSPECIFIED ORGANISM (4) Sarcoid Code(s): D86.9 - SARCOIDOSIS, UNSPECIFIED (5) Acute on chronic systolic (congestive) heart failure Assessment/Plan: 04/22/16 ECHO: severely reduced LVEF; borderline LV dilation; moderate bilateral atrial enlargement; moderately severe TR; moderate MR; mild [place]. Continue carvedilol and losartan; spironolactone 25 mg daily; furosemide prn. F/u BUN/Cr, daily weight, electrolytes, Is and Os (had trouble urinating after Lasix: BPH). Digoxin level (keep 0.5-1.0: presently 0.7). TSH mildly elevated; f/u free T4. CXR today: no acute cardiopulmonary pathology. Pt for coronary angiogram and evaluation for changing PPM to ICD. Code(s): I50.23 - ACUTE ON CHRONIC SYSTOLIC (CONGESTIVE) HEART FAILURE
[2016-04-23] MEDS: diphenhydrAMINE HCL 25 MG CAPSULE (FP) PO PRN (22:55)
[2016-04-24 03:57] VITALS: TEMP 97.3
[2016-04-24] MEDS: ALBUTEROL SO4 2.5/IPRATROPIUM 0.5 INH SOL 3 ML VIAL.NEB. NEB SCH (06:22)
[2016-04-24 06:37] VITALS: BP 129/72; PULSE 63
--- NOTE | 2016-04-24 07:14 | PN ---
Progress Note, Physician Chief Complaint: Pt A&Ox3; OOB in chair. No chest pain: stil with dry cough (trouble bringing up sputum) History of Present Illness: 85 y/o afebrile white male with PMH A-fib, systolic CHF (mild-moerately decreased LVEF on 2014 ECHO; severely reduced LVEF on 04/22/2016 ECHO), CAD, DM , GERD, HTN, PVD, sarcoidosis, venous insufficiency sent in by Dr. Klein for admission for SOB. HISTORY OF PRESENT ILLNESS: The patient states he has had a productive cough of clear sputum for the past 1 week. He now has orthopnea and is afraid to lie flat because he chokes. He also admits to lower extremity swelling. The patient denies fever, chills, n/v/d, CP, abd pain, back pain. The patient completed a Z-pack 2 days ago for treatment of clinical pneumonia with little relief. Vital signs on arrival are within normal limits. - Current Medication List Current Medications: Active Medications Albuterol/Ipratropium (Duoneb -) [address] [facility] Last Admin: 04/23/16 23:25 Dose: 1 amp Carvedilol (Coreg -) 6.[address] [facility] Last Admin: 04/23/16 22:55 Dose: 6.25 mg Cefpodoxime Proxetil (Vantin (Nf) -) [address] [facility] Stop: 04/26/16 22:01 Last Admin: 04/23/16 22:55 Dose: 200 mg Digoxin (Lanoxin -) 0.[address] [facility] Last Admin: 04/23/16 10:20 Dose: 0.125 mg Diphenhydramine HCl (Benadryl -) 25 mg PO Q6H PRN PRN Reason: PRN Last Admin: 04/23/16 22:55 Dose: 25 mg Enoxaparin Sodium (Lovenox -) [address] [facility] Last Admin: 04/23/16 10:21 Dose: 40 mg Fluticasone Propionate (Flonase -) [address] [facility] Last Admin: 04/23/16 22:53 Dose: 1 spray Furosemide (Lasix -) [address] [facility] Last Admin: 04/23/16 10:21 Dose: 40 mg Ceftriaxone Sodium (Rocephin 1gm Ivpb (Pre-Docked)) 50 mls @ 100 mls/hr IVPB DAILY [facility] Last Admin: 04/23/16 10:21 Dose: 100 mls/hr Losartan Potassium (Cozaar -) [address] [facility] Last Admin: 04/23/16 10:20 Dose: 50 mg Spironolactone (Aldactone -) [address] [facility] Last Admin: 04/23/16 10:20 Dose: 25 mg Tamsulosin HCl (Flomax -) 0.4 mg PO DAILY@0830 [facility] Last Admin: 04/23/16 08:22 Dose: 0.4 mg - Objective Vital Signs: Vital Signs Temperature 97.3 F L 04/24/16 02:00 Pulse Rate 63 04/24/16 06:00 Respiratory Rate 20 04/24/16 06:00 Blood Pressure 129/72 04/24/16 06:00 O2 Sat by Pulse Oximetry (%) 97 04/23/16 21:00 Constitutional: Yes: Anxious Eyes: Yes: WNL HENT: Yes: WNL Neck: Yes: WNL Cardiovascular: Yes: Pulse Irregular Respiratory: Yes: Regular Gastrointestinal: Yes: Soft ...Rectal Exam: Yes: Deferred Genitourinary: No: Anuria Breast(s): Yes: WNL Musculoskeletal: Yes: Muscle Weakness Extremities: Yes: Cool Edema: Yes Edema: LLE: Trace, RLE: Trace Peripheral Pulses WNL: No Peripheral Pulses: Left Doralis Pedis: 2+, Right Dorsalis Pedis: 2+ Integumentary: Yes: Venous Stasis Changes Neurological: Yes: Alert, Oriented, Weakness Psychiatric: Yes: Alert, Oriented Labs: CBC, BMP 04/22/16 05:35 04/22/16 05:35 INR, PTT INR 1.23 (0.82-1.09) H 04/20/16 13:15 - ....Imaging Chest X-ray: Image Reviewed (no acute pathology) Problem List - Problems (1) ASHD (arteriosclerotic heart disease) Code(s): I25.10 - ATHSCL HEART DISEASE OF [place] CORONARY ARTERY W/O ANG PCTRS (2) Pacemaker Assessment/Plan: f/u interrogation. Pt will likely require change to ICD (severely dilated cardiomyopathy; LVEF has worsened over the past year and is now severely reduced). Code(s): Z95.0 - PRESENCE OF CARDIAC PACEMAKER (3) Pneumonia Assessment/Plan: On antibiotics; no growth on blood c/s. CXR today: no acute pathology. Code(s): J18.9 - PNEUMONIA, UNSPECIFIED ORGANISM (4) Sarcoid Code(s): D86.9 - SARCOIDOSIS, UNSPECIFIED (5) Acute on chronic systolic (congestive) heart failure Assessment/Plan: 04/22/16 ECHO: severely reduced LVEF; borderline LV dilation; moderate bilateral atrial enlargement; moderately severe TR; moderate MR; mild [place]. Continue carvedilol and losartan; spironolactone 25 mg daily; furosemide prn. F/u BUN/Cr, daily weight, electrolytes, Is and Os (had trouble urinating after Lasix: BPH). Digoxin level (keep 0.5-1.0: presently 0.7). TSH mildly elevated; normal free T4. CXR today: no acute cardiopulmonary pathology. Pt for coronary angiogram today at [facility] and evaluation for changing PPM to ICD. Code(s): I50.23 - ACUTE ON CHRONIC SYSTOLIC (CONGESTIVE) HEART FAILURE
== END 2016-04-24 08:10 | disposition short-term general hospital (02) | DRG 291 ==
LOC: JER 12:10 → JERBED 16:22 → J4W 17:58
PROVIDERS: ADMIT Specialist; ATTEND Specialist
DX: I11.0 Hypertensive heart disease with heart failure (principal); J18.9 Pneumonia, unspecified organism; I50.23 Acute on chronic systolic (congestive) heart failure; Z95.0 Presence of cardiac pacemaker; D86.9 Sarcoidosis, unspecified; I25.10 Atherosclerotic heart disease of native coronary artery without angina pectoris; K21.9 Gastro-esophageal reflux disease without esophagitis; E11.9 Type 2 diabetes mellitus without complications; I48.91 Unspecified atrial fibrillation
CPT/HCPCS: 36415; 71020-TC; 71260-TC; 80053; 80162; 81003; 82550; 83605; 83735; 83880; 84100; 84439; 84443; 84484; 85025; 85610; 85730; 86850; 86900; 86901; 87040; 87086; 87254; 87804; 87899; 93005; 93010; 93306-TC; 94640; 99284-25